=== PATIENT | female | born 1980 | race African-American/Black ===

== ENCOUNTER 2016-10-14 12:39 | Emergency (ER) | payer OTHER ==
[~2016-10-14] VITALS: Ht 167.6 cm; Wt 56.0 kg
[~2016-10-14 12:39] MED LIST: ACET325T47 PO; HYD50 PO; LEVO50TA11 PO; LITH300CRT PO; PHEN100C23 PO; TEMA15CA PO
[2016-10-14] MEDS ORDERED: LORazepam 2 MG/ML VIAL IM ONE (13:15)
[2016-10-14 14:06] VITALS: BP 125/89
== END 2016-10-14 14:07 | disposition home or self-care (01) ==
LOC: EMS 12:41
DX: F41.9 Anxiety disorder, unspecified (principal); F31.9 Bipolar disorder, unspecified; F17.210 Nicotine dependence, cigarettes, uncomplicated; F20.9 Schizophrenia, unspecified; F12.90 Cannabis use, unspecified, uncomplicated; F19.90 Other psychoactive substance use, unspecified, uncomplicated; Z76.0 Encounter for issue of repeat prescription; Z88.6 Allergy status to analgesic agent; Z88.8 Allergy status to other drugs, medicaments and biological substances
CPT/HCPCS: 81025; 96372; 99284; 99406; J2060

== ENCOUNTER 2016-11-20 16:26 | Emergency (ER) | payer OTHER ==
[~2016-11-20] VITALS: Ht 165.1 cm; Wt 55.0 kg
[~2016-11-20 16:26] MED LIST changes: -ACET325T47 PO
[2016-11-20] MEDS ORDERED: LORazepam 2 MG/ML VIAL IM ONE (16:45)
[2016-11-20 17:08] VITALS: BP 126/80
[2016-11-20] MEDS ORDERED: ACETAMINOPHEN 325 MG TABLET PO ONE (17:45)
== END 2016-11-20 17:53 | disposition home or self-care (01) ==
LOC: EMS 16:34
DX: F41.9 Anxiety disorder, unspecified (principal); G89.29 Other chronic pain; M54.5 Low back pain; F17.210 Nicotine dependence, cigarettes, uncomplicated; F12.10 Cannabis abuse, uncomplicated; F31.9 Bipolar disorder, unspecified; E03.9 Hypothyroidism, unspecified; Z88.6 Allergy status to analgesic agent; Z88.8 Allergy status to other drugs, medicaments and biological substances
CPT/HCPCS: 96372; 99284; J2060

== ENCOUNTER 2016-12-08 18:54 | Emergency (ER) | payer OTHER ==
[~2016-12-08] VITALS: Ht 172.7 cm; Wt 56.8 kg
[~2016-12-08 18:54] MED LIST changes: +TEMA15 PO; -TEMA15CA PO
[2016-12-08] MEDS ORDERED: ACETAMINOPHEN 500 MG TABLET PO ONE (20:00)
[2016-12-08] MEDS ORDERED: LORazepam 2 MG/ML VIAL IM ONE (20:00)
[2016-12-08 21:10] VITALS: BP 107/67
== END 2016-12-08 21:19 | disposition home or self-care (01) ==
LOC: EMS 18:54
DX: R51 Headache (principal); F41.1 Generalized anxiety disorder; F20.9 Schizophrenia, unspecified; E03.9 Hypothyroidism, unspecified; F17.210 Nicotine dependence, cigarettes, uncomplicated; F31.9 Bipolar disorder, unspecified; F12.90 Cannabis use, unspecified, uncomplicated; F15.90 Other stimulant use, unspecified, uncomplicated; Z88.6 Allergy status to analgesic agent; Z88.8 Allergy status to other drugs, medicaments and biological substances
CPT/HCPCS: 96372; 99283; J2060

== ENCOUNTER 2017-01-05 09:31 | Emergency (ER) | payer OTHER ==
[~2017-01-05] VITALS: Ht 172.7 cm; Wt 56.8 kg
[~2017-01-05 09:31] MED LIST changes: -TEMA15 PO; +TEMA15CA PO
[2017-01-05] MEDS ORDERED: DiphenhydrAMINE HCL 50 MG/ML VIAL IM ONE (10:30)
[2017-01-05] MEDS ORDERED: LORazepam 2 MG/ML VIAL IM ONE (10:30)
[2017-01-05 13:32] VITALS: BP 126/65
== END 2017-01-05 13:41 | disposition home or self-care (01) ==
LOC: EMS 09:34
DX: F41.9 Anxiety disorder, unspecified (principal); F31.9 Bipolar disorder, unspecified; F20.9 Schizophrenia, unspecified; F12.90 Cannabis use, unspecified, uncomplicated; F19.90 Other psychoactive substance use, unspecified, uncomplicated; E03.9 Hypothyroidism, unspecified; F17.210 Nicotine dependence, cigarettes, uncomplicated; Z88.6 Allergy status to analgesic agent; Z88.8 Allergy status to other drugs, medicaments and biological substances
CPT/HCPCS: 96372; 99284; J1200; J2060

== ENCOUNTER 2017-01-23 11:31 | Emergency (ER) | payer OTHER ==
[~2017-01-23] VITALS: Ht 172.7 cm; Wt 57.3 kg
[2017-01-23 13:32] LABS: BASOPHILS % (AUTO) 0.5 % (0.0-2.0); EOSINOPHILS % (AUTO) 1.2 % (1.0-6.0); HEMOGLOBIN 12.8 g/dL (12.0-16.0); LYMPHOCYTES # (AUTO) 2.3 K/uL (1.0-4.8); LYMPHOCYTES % (AUTO) 37.3 % (22.0-44.0); MEAN CORPUSCULAR HEMOGLOBIN 27.9 pg (26.0-34.0); MEAN CORPUSCULAR HGB CONC 31.9 G/dL (31.0-37.0); MEAN CORPUSCULAR VOLUME 88 fL (80-100); MONOCYTES # (AUTO) 0.4 K/uL (0.1-1.0); MONOCYTES % (AUTO) 6.3 % (2.0-9.0); NEUTROPHILS # (AUTO) 3.4 K/uL (1.8-7.7); NEUTROPHILS % (AUTO) 54.7 % (40.0-70.0); PLATELET COUNT (AUTO) 280 K/uL (150-450); RED BLOOD CELL COUNT(AUTO) 4.57 MIL/uL (4.00-5.20); RED CELL DISTRIBUTION WIDTH 12.2 % (11.5-14.5); WHITE BLOOD COUNT (AUTO) 6.2 K/uL (4.5-11.0)
[2017-01-23] MEDS ORDERED: LORazepam 1 MG TABLET PO ONE (13:45)
[2017-01-23 13:46] LABS: ANION GAP 7 mmol/L (8-16); CALCIUM, TOTAL 8.1 mg/dL (8.8-10.5); CARBON DIOXIDE 27 mmol/L (22-29); CHLORIDE 104 mmol/L (98-107); CREATININE 0.81 mg/dL (0.60-1.30); GLOMERULAR FILTR. RATE CALC > 60 mL/min (>60); POTASSIUM 4.1 mmol/L (3.5-5.1); SODIUM SERUM 138 mmol/L (136-145); UREA NITROGEN, BLOOD 7 mg/dL (7-18)
[2017-01-23 13:52] LABS: ALANINE AMINOTRANSFERASE 25 U/L (12-78); ALBUMIN 3.8 g/dL (3.4-5.0); ASPARTATE AMINOTRANSFERASE 19 U/L (15-37); BILIRUBIN,TOTAL 0.2 mg/dL (0.1-1.0); TOTAL PROTEIN, SERUM 6.9 g/dL (6.4-8.2)
[2017-01-23 14:00] VITALS: BP 135/78
[2017-01-23] MEDS ORDERED: ACETAMINOPHEN 325 MG TABLET PO ONE (14:30)
== END 2017-01-23 14:56 | disposition home or self-care (01) ==
LOC: EEVIPCON 11:33 → EMS 11:33
DX: F41.9 Anxiety disorder, unspecified (principal); F20.9 Schizophrenia, unspecified; E03.9 Hypothyroidism, unspecified; F31.9 Bipolar disorder, unspecified; F17.210 Nicotine dependence, cigarettes, uncomplicated; F12.90 Cannabis use, unspecified, uncomplicated; F19.90 Other psychoactive substance use, unspecified, uncomplicated; Z88.6 Allergy status to analgesic agent; Z88.8 Allergy status to other drugs, medicaments and biological substances
CPT/HCPCS: 36415; 80053; 80307; 85025; 99284; G0480

== ENCOUNTER 2017-01-30 12:58 | Emergency (ER) | payer OTHER ==
[~2017-01-30] VITALS: Ht 172.7 cm; Wt 61.4 kg
[2017-01-30] MEDS ORDERED: ACETAMINOPHEN 325 MG TABLET PO ONE (14:30)
[2017-01-30] MEDS ORDERED: LORazepam 1 MG TABLET PO ONE (14:30)
[2017-01-30 15:20] VITALS: BP 122/75
== END 2017-01-30 15:20 | disposition home or self-care (01) ==
LOC: EMS 13:00
DX: F41.9 Anxiety disorder, unspecified (principal); D64.9 Anemia, unspecified; F31.9 Bipolar disorder, unspecified; F20.9 Schizophrenia, unspecified; F17.210 Nicotine dependence, cigarettes, uncomplicated; E03.9 Hypothyroidism, unspecified; Z59.0 Homelessness; Z88.6 Allergy status to analgesic agent; Z88.8 Allergy status to other drugs, medicaments and biological substances; Z79.899 Other long term (current) drug therapy
CPT/HCPCS: 99284

== ENCOUNTER 2017-02-01 22:59 | Inpatient (IN) | payer MEDICAID, OTHER ==
[~2017-02-01] VITALS: Ht 172.7 cm; Wt 57.2 kg
[2017-02-02] MEDS ORDERED: LITH300T PO ×2 (01:34)
[2017-02-02] MEDS ORDERED: HYDR-3965 PO (01:34)
[2017-02-02] MEDS ORDERED: HYDR-4031 PO (01:34)
[2017-02-02] MEDS ORDERED: RISP3 PO (01:34)
[2017-02-02] MEDS ORDERED: OLAN10TA3 PO (01:34)
[2017-02-02 03:25] VITALS: BP 103/67
[2017-02-02] MEDS ORDERED: -PHARMACY VACCINE NOTE- MISC ONE ×2 (03:45)
[2017-02-02 08:37] VITALS: BP 121/71
[2017-02-02] MEDS: LORazepam 2 MG TABLET PO PRN ×2 (09:56→16:58)
[2017-02-02] MEDS ORDERED: OLAN7.5T2 PO (11:01)
[2017-02-02 16:31] VITALS: BP 99/65
[2017-02-02] MEDS: LITHIUM CARBONATE 300 MG CAPSULE PO SCH (20:17)
[2017-02-02] MEDS ORDERED: PHENYTOIN SODIUM 100 MG ER CAPSULE PO SCH (21:00)
[2017-02-02] MEDS: ZOLPIDEM TARTRATE 10 MG TABLET PO PRN (21:05)
[2017-02-03 03:24] VITALS: BP 119/64
[2017-02-03] MEDS: LORazepam 2 MG TABLET PO PRN ×4 (03:28→20:19)
[2017-02-03] MEDS: ACETAMINOPHEN 325 MG TABLET PO PRN ×2 (05:13→14:53)
[2017-02-03] MEDS: LEVOTHYROXINE SODIUM 50 MCG TABLET PO SCH (06:12)
[2017-02-03 08:04] LABS: BASOPHILS % (AUTO) 0.5 % (0.0-2.0); EOSINOPHILS % (AUTO) 2.1 % (1.0-6.0); HEMATOCRIT 38.8 % (36-46); HEMOGLOBIN 13.1 g/dL (12.0-16.0); LYMPHOCYTES # (AUTO) 1.8 K/uL (1.0-4.8); LYMPHOCYTES % (AUTO) 32.5 % (22.0-44.0); MEAN CORPUSCULAR HGB CONC 33.8 G/dL (31.0-37.0); MEAN CORPUSCULAR VOLUME 86 fL (80-100); MONOCYTES # (AUTO) 0.4 K/uL (0.1-1.0); MONOCYTES % (AUTO) 6.9 % (2.0-9.0); NEUTROPHILS # (AUTO) 3.2 K/uL (1.8-7.7); PLATELET COUNT (AUTO) 261 K/uL (150-450); RED BLOOD CELL COUNT(AUTO) 4.53 MIL/uL (4.00-5.20); RED CELL DISTRIBUTION WIDTH 12.5 % (11.5-14.5); WHITE BLOOD COUNT (AUTO) 5.5 K/uL (4.5-11.0)
[2017-02-03 08:12] VITALS: BP 105/64
[2017-02-03 08:17] LABS: HEMOGLOBIN A1C 4.9 % (4.5-6.2)
[2017-02-03 08:24] LABS: ALANINE AMINOTRANSFERASE 24 U/L (12-78); ALBUMIN 3.7 g/dL (3.4-5.0); ANION GAP 9 mmol/L (8-16); ASPARTATE AMINOTRANSFERASE 16 U/L (15-37); BILIRUBIN,TOTAL 0.1 mg/dL (0.1-1.0); CALCIUM, TOTAL 8.6 mg/dL (8.8-10.5); CARBON DIOXIDE 24 mmol/L (22-29); CHLORIDE 103 mmol/L (98-107); CHOL/HDL RATIO 3.1 (3.9-5.7); CREATININE 0.84 mg/dL (0.60-1.30); GLOMERULAR FILTR. RATE CALC > 60 mL/min (>60); POTASSIUM 4.2 mmol/L (3.5-5.1); SODIUM SERUM 136 mmol/L (136-145); THYROID STIMULATING HORMONE 1.01 uIU/mL (0.36-3.74); TOTAL PROTEIN, SERUM 6.5 g/dL (6.4-8.2); UREA NITROGEN, BLOOD 7 mg/dL (7-18)
[2017-02-03] MEDS: RisperiDONE 3 MG TABLET PO SCH ×2 (09:36→17:00)
[2017-02-03] MEDS: LITHIUM CARBONATE 600 MG CAPSULE PO SCH (09:36)
[2017-02-03] MEDS: BENZTROPINE MESYLATE 0.5 MG TABLET PO SCH ×2 (09:37→17:00)
[2017-02-03 15:53] VITALS: BP 110/62
[2017-02-03 17:26] VITALS: BP 100/60
[2017-02-03] MEDS: PHENYTOIN SODIUM 100 MG ER CAPSULE PO SCH (20:19)
[2017-02-03] MEDS: LITHIUM CARBONATE 300 MG CAPSULE PO SCH (20:19)
[2017-02-03] MEDS: ZOLPIDEM TARTRATE 10 MG TABLET PO PRN (21:07)
[2017-02-04 01:40] VITALS: BP 117/63
[2017-02-04] MEDS: LORazepam 2 MG TABLET PO PRN ×3 (04:19→16:21)
[2017-02-04] MEDS: ACETAMINOPHEN 325 MG TABLET PO PRN (04:19)
[2017-02-04] MEDS: LEVOTHYROXINE SODIUM 50 MCG TABLET PO SCH (06:21)
[2017-02-04] MEDS: RisperiDONE 3 MG TABLET PO SCH ×2 (09:00→17:00)
[2017-02-04] MEDS: BENZTROPINE MESYLATE 0.5 MG TABLET PO SCH ×2 (09:00→17:00)
[2017-02-04 09:01] VITALS: BP 105/66
[2017-02-04] MEDS: LITHIUM CARBONATE 600 MG CAPSULE PO SCH (09:12)
[2017-02-04 16:28] VITALS: BP 110/68
[2017-02-04] MEDS: PHENYTOIN SODIUM 100 MG ER CAPSULE PO SCH (20:03)
[2017-02-04] MEDS: LITHIUM CARBONATE 300 MG CAPSULE PO SCH (20:03)
[2017-02-04] MEDS: ZOLPIDEM TARTRATE 10 MG TABLET PO PRN (21:01)
[2017-02-05] MEDS: LORazepam 2 MG TABLET PO PRN ×3 (03:53→16:12)
[2017-02-05 06:17] VITALS: BP 110/77
[2017-02-05] MEDS: LEVOTHYROXINE SODIUM 50 MCG TABLET PO SCH (06:43)
[2017-02-05 08:37] VITALS: BP 98/65
[2017-02-05 09:00] VITALS: BP 108/71
[2017-02-05] MEDS: BENZTROPINE MESYLATE 0.5 MG TABLET PO SCH ×2 (09:00→16:12)
[2017-02-05] MEDS: RisperiDONE 3 MG TABLET PO SCH ×2 (09:00→16:12)
[2017-02-05] MEDS: LITHIUM CARBONATE 600 MG CAPSULE PO SCH (09:37)
[2017-02-05] MEDS: NICOTINE 21 MG/24 HOUR PATCH TD SCH (10:55)
[2017-02-05 16:39] VITALS: BP 113/61
[2017-02-05] MEDS: LITHIUM CARBONATE 300 MG CAPSULE PO SCH (20:48)
[2017-02-05] MEDS: PHENYTOIN SODIUM 100 MG ER CAPSULE PO SCH (20:48)
[2017-02-05] MEDS: ZOLPIDEM TARTRATE 10 MG TABLET PO PRN (20:48)
[2017-02-06 06:29] VITALS: BP 132/63
[2017-02-06] MEDS: LORazepam 2 MG TABLET PO PRN ×2 (06:39→16:44)
[2017-02-06] MEDS: LEVOTHYROXINE SODIUM 50 MCG TABLET PO SCH (06:40)
[2017-02-06] MEDS: RisperiDONE 3 MG TABLET PO SCH ×2 (09:00→16:43)
[2017-02-06] MEDS: BENZTROPINE MESYLATE 0.5 MG TABLET PO SCH ×2 (09:00→16:43)
[2017-02-06] MEDS: LITHIUM CARBONATE 600 MG CAPSULE PO SCH (10:03)
[2017-02-06] MEDS: NICOTINE 21 MG/24 HOUR PATCH TD SCH (10:03)
[2017-02-06 17:15] VITALS: BP 109/62
[2017-02-06] MEDS: PHENYTOIN SODIUM 100 MG ER CAPSULE PO SCH (21:05)
[2017-02-06] MEDS: LITHIUM CARBONATE 300 MG CAPSULE PO SCH (21:06)
[2017-02-07] MEDS: LEVOTHYROXINE SODIUM 50 MCG TABLET PO SCH (06:34)
[2017-02-07] MEDS: LORazepam 2 MG TABLET PO PRN ×3 (08:26→16:50)
[2017-02-07 08:57] VITALS: BP 101/59
[2017-02-07] MEDS: BENZTROPINE MESYLATE 0.5 MG TABLET PO SCH ×2 (09:06→16:50)
[2017-02-07] MEDS: LITHIUM CARBONATE 600 MG CAPSULE PO SCH (09:06)
[2017-02-07] MEDS: NICOTINE 21 MG/24 HOUR PATCH TD SCH (09:06)
[2017-02-07] MEDS: RisperiDONE 3 MG TABLET PO SCH ×2 (09:07→16:50)
[2017-02-07 16:20] VITALS: BP 111/60
[2017-02-07] MEDS: ACETAMINOPHEN 325 MG TABLET PO PRN (16:50)
[2017-02-07] MEDS: PHENYTOIN SODIUM 100 MG ER CAPSULE PO SCH (21:06)
[2017-02-07] MEDS: LITHIUM CARBONATE 300 MG CAPSULE PO SCH (21:07)
[2017-02-07] MEDS: ZOLPIDEM TARTRATE 10 MG TABLET PO PRN (21:07)
[2017-02-08] MEDS: LEVOTHYROXINE SODIUM 50 MCG TABLET PO SCH (06:43)
[2017-02-08 08:07] VITALS: BP 106/74
[2017-02-08] MEDS: BENZTROPINE MESYLATE 0.5 MG TABLET PO SCH ×2 (08:59→16:42)
[2017-02-08] MEDS: RisperiDONE 3 MG TABLET PO SCH ×2 (08:59→17:00)
[2017-02-08] MEDS: NICOTINE 21 MG/24 HOUR PATCH TD SCH (08:59)
[2017-02-08] MEDS: LITHIUM CARBONATE 600 MG CAPSULE PO SCH (08:59)
[2017-02-08] MEDS: ACETAMINOPHEN 325 MG TABLET PO PRN (09:00)
[2017-02-08] MEDS: LORazepam 2 MG TABLET PO PRN ×2 (09:00→16:42)
[2017-02-08 17:28] VITALS: BP 109/65
[2017-02-08] MEDS: LITHIUM CARBONATE 300 MG CAPSULE PO SCH (20:15)
[2017-02-08] MEDS: PHENYTOIN SODIUM 100 MG ER CAPSULE PO SCH (20:15)
[2017-02-08] MEDS: ZOLPIDEM TARTRATE 10 MG TABLET PO PRN (21:02)
[2017-02-09 03:18] VITALS: BP 121/68
[2017-02-09] MEDS: LORazepam 2 MG TABLET PO PRN ×3 (03:20→16:01)
[2017-02-09] MEDS: LEVOTHYROXINE SODIUM 50 MCG TABLET PO SCH (06:29)
[2017-02-09 08:29] VITALS: BP 100/63
[2017-02-09] MEDS: BENZTROPINE MESYLATE 0.5 MG TABLET PO SCH ×2 (09:00→17:00)
[2017-02-09] MEDS: RisperiDONE 3 MG TABLET PO SCH ×2 (09:00→17:00)
[2017-02-09] MEDS: NICOTINE 21 MG/24 HOUR PATCH TD SCH (09:02)
[2017-02-09] MEDS: LITHIUM CARBONATE 600 MG CAPSULE PO SCH (09:02)
[2017-02-09 16:05] VITALS: BP 112/69
[2017-02-09] MEDS: LITHIUM CARBONATE 300 MG CAPSULE PO SCH (20:17)
[2017-02-09] MEDS: PHENYTOIN SODIUM 100 MG ER CAPSULE PO SCH (20:17)
[2017-02-09] MEDS: ZOLPIDEM TARTRATE 10 MG TABLET PO PRN (21:01)
[2017-02-10] MEDS: LORazepam 2 MG TABLET PO PRN ×3 (05:52→17:04)
[2017-02-10] MEDS: LEVOTHYROXINE SODIUM 50 MCG TABLET PO SCH (05:52)
[2017-02-10 05:54] VITALS: BP 101/71
[2017-02-10 08:18] VITALS: BP 98/55
[2017-02-10] MEDS: BENZTROPINE MESYLATE 0.5 MG TABLET PO SCH ×2 (09:00→17:06)
[2017-02-10] MEDS: RisperiDONE 3 MG TABLET PO SCH ×2 (09:00→17:06)
[2017-02-10] MEDS: LITHIUM CARBONATE 600 MG CAPSULE PO SCH (09:15)
[2017-02-10] MEDS: NICOTINE 21 MG/24 HOUR PATCH TD SCH (09:16)
[2017-02-10 16:15] VITALS: BP 111/74
[2017-02-10] MEDS: PHENYTOIN SODIUM 100 MG ER CAPSULE PO SCH (20:15)
[2017-02-10] MEDS: LITHIUM CARBONATE 300 MG CAPSULE PO SCH (20:15)
[2017-02-10] MEDS: ZOLPIDEM TARTRATE 10 MG TABLET PO PRN (20:52)
[2017-02-11 01:15] VITALS: BP 100/61
[2017-02-11] MEDS: LEVOTHYROXINE SODIUM 50 MCG TABLET PO SCH (05:51)
[2017-02-11 08:13] VITALS: BP 111/62
[2017-02-11] MEDS: LORazepam 2 MG TABLET PO PRN ×3 (08:46→21:52)
[2017-02-11] MEDS: NICOTINE 21 MG/24 HOUR PATCH TD SCH (08:46)
[2017-02-11] MEDS: BENZTROPINE MESYLATE 0.5 MG TABLET PO SCH ×2 (08:46→17:05)
[2017-02-11] MEDS: LITHIUM CARBONATE 600 MG CAPSULE PO SCH (08:46)
[2017-02-11] MEDS: RisperiDONE 3 MG TABLET PO SCH ×2 (09:36→17:05)
[2017-02-11] MEDS ORDERED: MAG HYDROX/AL HYDROX/SIMETH 30 ML SUSP UDCUP PO PRN (15:30)
[2017-02-11 16:11] VITALS: BP 121/68
[2017-02-11] MEDS: ACETAMINOPHEN 325 MG TABLET PO PRN (17:06)
[2017-02-11 17:07] VITALS: BP 121/68
[2017-02-11] MEDS: LITHIUM CARBONATE 300 MG CAPSULE PO SCH (20:40)
[2017-02-11] MEDS: PHENYTOIN SODIUM 100 MG ER CAPSULE PO SCH (20:40)
[2017-02-11] MEDS: ZOLPIDEM TARTRATE 10 MG TABLET PO PRN (21:10)
[2017-02-12 01:56] VITALS: BP 106/60
[2017-02-12] MEDS: ACETAMINOPHEN 325 MG TABLET PO PRN ×2 (02:00→17:12)
[2017-02-12 06:05] VITALS: BP 112/71
[2017-02-12] MEDS: LORazepam 2 MG TABLET PO PRN ×4 (06:07→20:16)
[2017-02-12] MEDS: LEVOTHYROXINE SODIUM 50 MCG TABLET PO SCH (06:24)
[2017-02-12] MEDS: LITHIUM CARBONATE 600 MG CAPSULE PO SCH (08:30)
[2017-02-12] MEDS: BENZTROPINE MESYLATE 0.5 MG TABLET PO SCH ×2 (08:30→16:48)
[2017-02-12] MEDS: RisperiDONE 3 MG TABLET PO SCH ×2 (08:30→16:48)
[2017-02-12] MEDS: NICOTINE 21 MG/24 HOUR PATCH TD SCH (08:31)
[2017-02-12 08:46] VITALS: BP 142/65
[2017-02-12 16:08] VITALS: BP 120/67
[2017-02-12] MEDS: PHENYTOIN SODIUM 100 MG ER CAPSULE PO SCH (20:17)
[2017-02-12] MEDS: LITHIUM CARBONATE 300 MG CAPSULE PO SCH (20:17)
[2017-02-12] MEDS: ZOLPIDEM TARTRATE 10 MG TABLET PO PRN (21:37)
[2017-02-13 04:08] VITALS: BP 118/77
[2017-02-13] MEDS: ACETAMINOPHEN 325 MG TABLET PO PRN (06:10)
[2017-02-13] MEDS: LORazepam 2 MG TABLET PO PRN ×2 (06:10→10:34)
[2017-02-13] MEDS: LEVOTHYROXINE SODIUM 50 MCG TABLET PO SCH (06:15)
[2017-02-13 08:16] VITALS: BP 106/71
[2017-02-13] MEDS: BENZTROPINE MESYLATE 0.5 MG TABLET PO SCH (08:50)
[2017-02-13] MEDS: NICOTINE 21 MG/24 HOUR PATCH TD SCH (08:50)
[2017-02-13] MEDS: RisperiDONE 3 MG TABLET PO SCH (08:50)
[2017-02-13] MEDS: LITHIUM CARBONATE 600 MG CAPSULE PO SCH (09:05)
[2017-02-13 10:35] VITALS: BP 113/67
[2017-02-13] MEDS ORDERED: BENZ0.5T6 PO (13:08)
== END 2017-02-13 15:16 | disposition home or self-care (01) | DRG 750 ==
LOC: EDSTATUS 23:00 → B3A 02-02 01:20
PROVIDERS: ADMIT Psychiatry & Neurology Psychiatry; ATTEND Psychiatry & Neurology Psychiatry
DX: F25.1 Schizoaffective disorder, depressive type (principal); D57.1 Sickle-cell disease without crisis; R45.851 Suicidal ideations; E03.9 Hypothyroidism, unspecified; J44.9 Chronic obstructive pulmonary disease, unspecified; K21.9 Gastro-esophageal reflux disease without esophagitis; M19.90 Unspecified osteoarthritis, unspecified site; G40.909 Epilepsy, unspecified, not intractable, without status epilepticus; Z91.5 Personal history of self-harm; F22 Delusional disorders; Z88.6 Allergy status to analgesic agent; Z88.1 Allergy status to other antibiotic agents; Z88.8 Allergy status to other drugs, medicaments and biological substances; F19.10 Other psychoactive substance abuse, uncomplicated; Z71.51 Drug abuse counseling and surveillance of drug abuser
CPT/HCPCS: 83036; 84439; 84443; 87081

== ENCOUNTER 2017-07-07 11:57 | Emergency (ER) | payer OTHER ==
[~2017-07-07] VITALS: Ht 172.7 cm; Wt 53.2 kg
[~2017-07-07 11:57] MED LIST changes: +BENZ0.5T6 PO; -HYD50 PO; -LITH300CRT PO; +LITH300T PO; +RISP3 PO; -TEMA15CA PO
[2017-07-07] MEDS ORDERED: ACETAMINOPHEN 325 MG TABLET PO ONE (13:00)
[2017-07-07] MEDS ORDERED: LORazepam 1 MG TABLET PO ONE (13:00)
[2017-07-07 13:13] VITALS: BP 102/68
== END 2017-07-07 13:20 | disposition home or self-care (01) ==
LOC: EMS 11:58
DX: F41.9 Anxiety disorder, unspecified (principal); M25.511 Pain in right shoulder; G89.29 Other chronic pain; F31.9 Bipolar disorder, unspecified; F20.9 Schizophrenia, unspecified; E03.9 Hypothyroidism, unspecified; F12.90 Cannabis use, unspecified, uncomplicated; F15.90 Other stimulant use, unspecified, uncomplicated; F17.210 Nicotine dependence, cigarettes, uncomplicated; Z88.6 Allergy status to analgesic agent; Z88.8 Allergy status to other drugs, medicaments and biological substances
CPT/HCPCS: 99284; 99406

== ENCOUNTER 2017-07-12 07:47 | Emergency (ER) | payer OTHER ==
[~2017-07-12] VITALS: Ht 175.3 cm; Wt 53.0 kg
[2017-07-12 07:59] VITALS: BP 108/74
[2017-07-12] MEDS ORDERED: ACETAMINOPHEN 500 MG TABLET PO ONE (08:00)
[2017-07-12] MEDS ORDERED: LORazepam 1 MG TABLET PO ONE (08:00)
== END 2017-07-12 08:11 | disposition home or self-care (01) ==
LOC: EMS 07:48
DX: M25.511 Pain in right shoulder (principal); F41.9 Anxiety disorder, unspecified; G89.29 Other chronic pain; F31.9 Bipolar disorder, unspecified; E03.9 Hypothyroidism, unspecified; F20.9 Schizophrenia, unspecified; F12.90 Cannabis use, unspecified, uncomplicated; F19.90 Other psychoactive substance use, unspecified, uncomplicated; Z76.0 Encounter for issue of repeat prescription; Z59.0 Homelessness; Z87.891 Personal history of nicotine dependence; Z88.6 Allergy status to analgesic agent; Z88.8 Allergy status to other drugs, medicaments and biological substances
CPT/HCPCS: 99283

== ENCOUNTER 2017-07-14 15:50 | Emergency (ER) | payer OTHER ==
[~2017-07-14] VITALS: Ht 167.6 cm; Wt 52.3 kg
[2017-07-14 16:03] VITALS: BP 111/71
[2017-07-14 16:30] LABS: BASOPHILS % (AUTO) 0.5 % (0.0-2.0); EOSINOPHILS % (AUTO) 1.7 % (1.0-6.0); HEMATOCRIT 39.7 % (36-46); HEMOGLOBIN 13.3 g/dL (12.0-16.0); LYMPHOCYTES # (AUTO) 1.7 K/uL (1.0-4.8); LYMPHOCYTES % (AUTO) 23.2 % (22.0-44.0); MEAN CORPUSCULAR HEMOGLOBIN 28.5 pg (26.0-34.0); MEAN CORPUSCULAR HGB CONC 33.5 G/dL (31.0-37.0); MEAN CORPUSCULAR VOLUME 85 fL (80-100); MONOCYTES # (AUTO) 0.4 K/uL (0.1-1.0); MONOCYTES % (AUTO) 5.8 % (2.0-9.0); NEUTROPHILS # (AUTO) 4.9 K/uL (1.8-7.7); NEUTROPHILS % (AUTO) 68.8 % (40.0-70.0); PLATELET COUNT (AUTO) 330 K/uL (150-450); RED BLOOD CELL COUNT(AUTO) 4.67 MIL/uL (4.00-5.20); WHITE BLOOD COUNT (AUTO) 7.2 K/uL (4.5-11.0)
[2017-07-14 16:42] LABS: INR 1.1 (0.9-1.1); PROTHROMBIN TIME 11.3 SEC (9.4-11.6)
[2017-07-14 16:56] LABS: ANION GAP 9 mmol/L (8-16); CALCIUM, TOTAL 9.1 mg/dL (8.8-10.5); CARBON DIOXIDE 25 mmol/L (22-29); CHLORIDE 102 mmol/L (98-107); CREATININE 0.82 mg/dL (0.60-1.30); GLOMERULAR FILTR. RATE CALC > 60 mL/min (>60); POTASSIUM 4.6 mmol/L (3.5-5.1); SODIUM SERUM 136 mmol/L (136-145); UREA NITROGEN, BLOOD 8 mg/dL (7-18)
[2017-07-14 17:02] LABS: APPEARANCE,URINE CLEAR (CLEAR); GLUCOSE, URINE (UA) NEGATIVE (NEGATIVE); KETONES,URINE NEGATIVE (NEGATIVE); LEUKOCYTE ESTERASE ,URINE NEGATIVE (NEGATIVE); OCCULT BLOOD,URINE NEGATIVE (NEGATIVE); PROTEIN,URINE NEGATIVE (NEGATIVE)
[2017-07-14 17:04] LABS: ALANINE AMINOTRANSFERASE 21 U/L (12-78); ASPARTATE AMINOTRANSFERASE 32 U/L (15-37); B-TYPE NATRIURETIC PEPTIDE < 5 pg/mL (0-100); BILIRUBIN,TOTAL 0.3 mg/dL (0.1-1.0); CREATINE KINASE MB 1.4 ng/mL (0-5); CREATINE KINASE, TOTAL 238 U/L (26-192); TOTAL PROTEIN, SERUM 7.7 g/dL (6.4-8.2)
[2017-07-14 17:04] LABS: ADD UA MICROSCOPIC NO
[2017-07-14 17:20] LABS: RBC MORPHOLOGY COMMENT NORMAL RBC MORPH
== END 2017-07-14 17:42 | disposition home or self-care (01) ==
LOC: EMS 15:53
DX: R07.89 Other chest pain (principal); D57.00 Hb-SS disease with crisis, unspecified; E03.9 Hypothyroidism, unspecified; F12.90 Cannabis use, unspecified, uncomplicated; F19.90 Other psychoactive substance use, unspecified, uncomplicated; Z87.891 Personal history of nicotine dependence; Z59.0 Homelessness; Z88.6 Allergy status to analgesic agent; Z88.8 Allergy status to other drugs, medicaments and biological substances
CPT/HCPCS: 85045; 93005; 99285

== ENCOUNTER 2017-07-23 09:51 | Emergency (ER) | payer OTHER ==
[~2017-07-23] VITALS: Ht 172.7 cm; Wt 56.8 kg
[2017-07-23 11:10] LABS: BASOPHILS # (AUTO) 0.03 K/uL (0.00-0.20); BASOPHILS % (AUTO) 0.4 % (0.0-2.0); EOSINOPHILS % (AUTO) 1.37 % (1.0-6.0); HEMATOCRIT 39.3 % (36-46); HEMOGLOBIN 12.7 g/dL (12.0-16.0); LYMPHOCYTES # (AUTO) 1.4 K/uL (1.0-4.8); LYMPHOCYTES % (AUTO) 19.7 % (22.0-44.0); MEAN CORPUSCULAR HEMOGLOBIN 27.8 pg (26.0-34.0); MEAN CORPUSCULAR HGB CONC 32.2 G/dL (31.0-37.0); MEAN CORPUSCULAR VOLUME 86 fL (80-100); MONOCYTES # (AUTO) 0.5 K/uL (0.1-1.0); MONOCYTES % (AUTO) 6.9 % (2.0-9.0); NEUTROPHILS # (AUTO) 5.3 K/uL (1.8-7.7); NEUTROPHILS % (AUTO) 71.6 % (40.0-70.0); PLATELET COUNT (AUTO) 260 K/uL (150-450); RED BLOOD CELL COUNT(AUTO) 4.55 MIL/uL (4.00-5.20); RED CELL DISTRIBUTION WIDTH 13.4 % (11.5-14.5); WHITE BLOOD COUNT (AUTO) 7.3 K/uL (4.5-11.0)
[2017-07-23 11:12] LABS: RBC MORPHOLOGY COMMENT NORMAL RBC MORPH
[2017-07-23 11:20] LABS: ANION GAP 5 mmol/L (8-16); CALCIUM, TOTAL 8.8 mg/dL (8.8-10.5); CARBON DIOXIDE 27 mmol/L (22-29); CHLORIDE 104 mmol/L (98-107); CREATININE 0.71 mg/dL (0.60-1.30); GLOMERULAR FILTR. RATE CALC > 60 mL/min (>60); POTASSIUM 4.3 mmol/L (3.5-5.1); SODIUM SERUM 136 mmol/L (136-145); UREA NITROGEN, BLOOD 10 mg/dL (7-18)
[2017-07-23] MEDS ORDERED: LITH300C3 PO (11:22)
[2017-07-23] MEDS ORDERED: LITH600 PO (11:22)
[2017-07-23] MEDS ORDERED: LORazepam 1 MG TABLET PO ONE (11:30)
[2017-07-23 11:35] LABS: ALANINE AMINOTRANSFERASE 28 U/L (12-78); ALBUMIN 3.6 g/dL (3.4-5.0); ASPARTATE AMINOTRANSFERASE 24 U/L (15-37); BILIRUBIN,TOTAL 0.1 mg/dL (0.1-1.0); THYROID STIMULATING HORMONE 0.33 uIU/mL (0.36-3.74)
[2017-07-23 11:37] LABS: LITHIUM < 0.20 mmol/L (0.60-1.20)
[2017-07-23 12:05] VITALS: BP 115/68
== END 2017-07-23 12:09 | disposition home or self-care (01) ==
LOC: EMS 09:53
DX: F41.9 Anxiety disorder, unspecified (principal); E03.9 Hypothyroidism, unspecified; F12.90 Cannabis use, unspecified, uncomplicated; F19.90 Other psychoactive substance use, unspecified, uncomplicated; Z87.891 Personal history of nicotine dependence; Z59.0 Homelessness; Z88.6 Allergy status to analgesic agent; Z88.8 Allergy status to other drugs, medicaments and biological substances
CPT/HCPCS: 36415; 80053; 80178; 80185; 80307; 84443; 85025; 99284; G0480

== ENCOUNTER 2017-11-05 22:58 | Emergency (ER) | payer OTHER ==
[~2017-11-05] VITALS: Ht 172.7 cm; Wt 52.3 kg
[~2017-11-05 22:58] MED LIST changes: +LITH300C3 PO; -LITH300T PO; +LITH600 PO
[2017-11-06] MEDS ORDERED: ACETAMINOPHEN 500 MG TABLET PO ONE (05:15)
[2017-11-06] MEDS ORDERED: TraMADol HCL 50 MG TABLET PO ONE (05:15)
[2017-11-06 06:07] VITALS: BP 118/71
[2017-11-06 06:07] LABS: GLUCOSE,POINT OF CARE 79 MG/DL (70-110)
== END 2017-11-06 06:13 | disposition home or self-care (01) ==
LOC: EDUNIT# 22:58 → EMS 22:59
DX: M54.5 Low back pain (principal); G89.29 Other chronic pain; F25.9 Schizoaffective disorder, unspecified; E16.2 Hypoglycemia, unspecified; E03.9 Hypothyroidism, unspecified; F12.90 Cannabis use, unspecified, uncomplicated; F15.90 Other stimulant use, unspecified, uncomplicated; Z87.891 Personal history of nicotine dependence
CPT/HCPCS: 82962; 99283

== ENCOUNTER 2018-07-27 04:47 | Emergency (ER) | payer OTHER ==
[~2018-07-27] VITALS: Ht 172.7 cm; Wt 51.8 kg
[~2018-07-27 04:47] MED LIST changes: +BENZ0.5T44 PO; -BENZ0.5T6 PO
[2018-07-27 05:15] LABS: AMPHET/METH SCREEN,URINE POSITIVE (NEGATIVE); BARBITURATE SCREEN, URINE NEGATIVE (NEGATIVE); BENZODIAZEPINES SCREEN,URINE NEGATIVE (NEGATIVE); CANNABINOID SCREEN,URINE NEGATIVE (NEGATIVE); COCAINE SCREEN,URINE NEGATIVE (NEGATIVE); METHADONE SCREEN, URINE NEGATIVE (NEGATIVE); OPIATE SCREEN,URINE NEGATIVE (NEGATIVE)
[2018-07-27 05:17] LABS: PHENCYCLIDINE SCREEN,URINE NEGATIVE (NEGATIVE)
[2018-07-27 05:48] LABS: BASOPHILS % (AUTO) 1.5 % (0.0-2.0); EOSINOPHILS % (AUTO) 1.2 % (1.0-6.0); HEMATOCRIT 33.2 % (36-46); HEMOGLOBIN 10.1 g/dL (12.0-16.0); LYMPHOCYTES # (AUTO) 1.4 K/uL (1.0-4.8); LYMPHOCYTES % (AUTO) 16.2 % (22.0-44.0); MEAN CORPUSCULAR HEMOGLOBIN 21.2 pg (26.0-34.0); MEAN CORPUSCULAR HGB CONC 30.5 G/dL (31.0-37.0); MEAN CORPUSCULAR VOLUME 69 fL (80-100); MONOCYTES # (AUTO) 0.6 K/uL (0.1-1.0); MONOCYTES % (AUTO) 7.4 % (2.0-9.0); NEUTROPHILS # (AUTO) 6.4 K/uL (1.8-7.7); NEUTROPHILS % (AUTO) 73.7 % (40.0-70.0); PLATELET COUNT (AUTO) 285 K/uL (150-450); RED BLOOD CELL COUNT(AUTO) 4.78 MIL/uL (4.00-5.20); RED CELL DISTRIBUTION WIDTH 19.6 % (11.5-14.5)
[2018-07-27 05:59] LABS: ANION GAP 4 mmol/L (8-16); CALCIUM, TOTAL 9.1 mg/dL (8.8-10.5); CARBON DIOXIDE 32 mmol/L (22-29); CHLORIDE 102 mmol/L (98-107); CREATININE 0.76 mg/dL (0.60-1.30); GLOMERULAR FILTR. RATE CALC > 60 mL/min (>60); GLUCOSE,RANDOM 88 mg/dL (70-110); POTASSIUM 3.9 mmol/L (3.5-5.1); SODIUM SERUM 138 mmol/L (136-145); UREA NITROGEN, BLOOD 4 mg/dL (7-18)
[2018-07-27 06:13] LABS: ALANINE AMINOTRANSFERASE 49 U/L (12-78); ALBUMIN 3.5 g/dL (3.4-5.0); ALKALINE PHOSPHATASE 159 U/L (46-116); ASPARTATE AMINOTRANSFERASE 56 U/L (15-37); BILIRUBIN,TOTAL 0.2 mg/dL (0.1-1.0); HCG,QUANTITATIVE < 1 mIU/mL (0-6); PHENYTOIN (DILANTIN) 10.3 mcg/mL (10.0-20.0); THYROID STIMULATING HORMONE 1.33 uIU/mL (0.36-3.74); TOTAL PROTEIN, SERUM 7.7 g/dL (6.4-8.2)
[2018-07-27 06:24] LABS: PLATELET MORPHOLOGY COMMENT LARGE PLTS PRESENT
[2018-07-27] MEDS ORDERED: ACETAMINOPHEN 500 MG TABLET PO ONE (07:00)
[2018-07-27] MEDS ORDERED: LORazepam 2 MG/ML VIAL IM ONE (07:00)
[2018-07-27 07:55] VITALS: BP 130/79
[2018-07-27 08:14] LABS: LITHIUM < 0.20 mmol/L (0.60-1.20)
== END 2018-07-27 08:29 | disposition home or self-care (01) ==
LOC: EMS 04:52
DX: F41.9 Anxiety disorder, unspecified (principal); D64.9 Anemia, unspecified; R52 Pain, unspecified; F15.10 Other stimulant abuse, uncomplicated; Z85.3 Personal history of malignant neoplasm of breast; F12.90 Cannabis use, unspecified, uncomplicated; F31.9 Bipolar disorder, unspecified; F20.9 Schizophrenia, unspecified; Z87.891 Personal history of nicotine dependence; Z59.0 Homelessness; Z88.6 Allergy status to analgesic agent; Z88.8 Allergy status to other drugs, medicaments and biological substances; Z79.899 Other long term (current) drug therapy
CPT/HCPCS: 36415; 80053; 80178; 80185; 80307; 84443; 84702; 85025; 96372; 99284; G0480; J2060

== ENCOUNTER 2018-08-27 19:16 | Emergency (ER) | payer OTHER ==
[~2018-08-27] VITALS: Ht 175.3 cm; Wt 55.5 kg
[2018-08-27 20:22] VITALS: BP 148/70
== END 2018-08-27 21:00 | disposition left against medical advice (07) ==
LOC: EMS 19:17
DX: R10.84 Generalized abdominal pain (principal); R11.0 Nausea; Z53.21 Procedure and treatment not carried out due to patient leaving prior to being seen by health care provider

== ENCOUNTER 2018-10-28 12:18 | Inpatient (IN) | payer MEDICAID, OTHER ==
[~2018-10-28] VITALS: Ht 170.2 cm; Wt 58.5 kg
[2018-10-28] MEDS ORDERED: FluPHENAZine HCL 2.5 MG/ML INJ IM ONE (13:15)
[2018-10-28] MEDS ORDERED: DIAZ5 PO (13:15)
[2018-10-28] MEDS ORDERED: LORazepam 2 MG/ML VIAL IM ONE (13:15)
[2018-10-28] MEDS ORDERED: COD30 PO (13:15)
[2018-10-28] MEDS ORDERED: DiphenhydrAMINE HCL 50 MG/ML VIAL IM ONE (13:15)
[2018-10-28 13:33] LABS: AMPHET/METH SCREEN,URINE POSITIVE (NEGATIVE); BARBITURATE SCREEN, URINE NEGATIVE (NEGATIVE); BENZODIAZEPINES SCREEN,URINE POSITIVE (NEGATIVE); CANNABINOID SCREEN,URINE NEGATIVE (NEGATIVE); COCAINE SCREEN,URINE NEGATIVE (NEGATIVE); METHADONE SCREEN, URINE NEGATIVE (NEGATIVE); OPIATE SCREEN,URINE POSITIVE (NEGATIVE)
[2018-10-28 13:36] LABS: PHENCYCLIDINE SCREEN,URINE NEGATIVE (NEGATIVE)
[2018-10-28 13:37] LABS: BASOPHILS % (AUTO) 1.5 % (0.0-2.0); EOSINOPHILS % (AUTO) 0.2 % (1.0-6.0); HEMATOCRIT 34.4 % (36-46); HEMOGLOBIN 10.9 g/dL (12.0-16.0); LYMPHOCYTES # (AUTO) 1.8 K/uL (1.0-4.8); LYMPHOCYTES % (AUTO) 28.5 % (22.0-44.0); MEAN CORPUSCULAR HGB CONC 31.6 G/dL (31.0-37.0); MEAN CORPUSCULAR VOLUME 79 fL (80-100); MONOCYTES # (AUTO) 0.6 K/uL (0.1-1.0); MONOCYTES % (AUTO) 8.9 % (2.0-9.0); NEUTROPHILS # (AUTO) 3.8 K/uL (1.8-7.7); NEUTROPHILS % (AUTO) 60.9 % (40.0-70.0); PLATELET COUNT (AUTO) 392 K/uL (150-450); RED BLOOD CELL COUNT(AUTO) 4.35 MIL/uL (4.00-5.20); RED CELL DISTRIBUTION WIDTH 20.1 % (11.5-14.5)
[2018-10-28 13:57] LABS: ANION GAP 12 mmol/L (8-16); CARBON DIOXIDE 28 mmol/L (22-29); CHLORIDE 107 mmol/L (98-107); CREATININE 0.71 mg/dL (0.60-1.30); GLOMERULAR FILTR. RATE CALC > 60 mL/min (>60); GLUCOSE,RANDOM 76 mg/dL (70-110); POTASSIUM 3.9 mmol/L (3.5-5.1); SODIUM SERUM 147 mmol/L (136-145); UREA NITROGEN, BLOOD 4 mg/dL (7-18)
[2018-10-28 14:02] LABS: ALANINE AMINOTRANSFERASE 21 U/L (12-78); ALBUMIN 3.6 g/dL (3.4-5.0); ALKALINE PHOSPHATASE 140 U/L (46-116); ASPARTATE AMINOTRANSFERASE 30 U/L (15-37); BILIRUBIN,TOTAL 0.2 mg/dL (0.1-1.0); TOTAL PROTEIN, SERUM 7.1 g/dL (6.4-8.2)
[2018-10-28 14:30] LABS: HCG,QUANTITATIVE < 1 mIU/mL (0-6); PHENYTOIN (DILANTIN) 4.7 mcg/mL (10.0-20.0)
[2018-10-28] MEDS ORDERED: MAGNESIUM HYDROXIDE SUSPENSION 30 ML UDCUP PO PRN ×2 (15:00→16:45)
[2018-10-28] MEDS ORDERED: LOPERAMIDE HCL 2 MG CAPSULE PO PRN ×2 (15:00→16:45)
[2018-10-28] MEDS ORDERED: ZOLPIDEM TARTRATE 10 MG TABLET PO PRN (15:00)
[2018-10-28] MEDS ORDERED: LORazepam 2 MG TABLET PO PRN (15:00)
[2018-10-28] MEDS ORDERED: PROMETHAZINE HCL 25 MG TABLET PO PRN ×2 (15:00→16:45)
[2018-10-28] MEDS ORDERED: ACETAMINOPHEN 325 MG TABLET PO PRN ×2 (15:00→16:45)
[2018-10-28] MEDS ORDERED: TUBERCULIN, PURIFIED PROTEIN DERIVATIVE 5 TU/0.1 ML SYRINGE ID ONE ×2 (15:00)
[2018-10-28] MEDS ORDERED: OLANZapine 5 MG RAPDIS TABLET PO PRN ×2 (15:00→16:45)
[2018-10-28] MEDS ORDERED: HydrOXYzine PAMOATE 50 MG CAPSULE PO PRN ×2 (15:00→16:45)
[2018-10-28] MEDS ORDERED: GuaiFENesin/D-METHORPHAN [SUGAR-FREE] 200-20MG/10 ML SYRUP UDCUP PO PRN ×2 (15:00→16:45)
[2018-10-28] MEDS ORDERED: MAG HYDROX/AL HYDROX/SIMETH ES 30 ML SUSPENSION UDCUP PO PRN ×2 (15:00→16:45)
[2018-10-28] MEDS ORDERED: ACET1TAB12 PO (15:33)
[2018-10-28] MEDS ORDERED: PHENYTOIN SODIUM 100 MG ER CAPSULE PO ONE (16:00)
[2018-10-28 18:06] VITALS: BP 110/62
[2018-10-28] MEDS ORDERED: THIAMINE HCL 100 MG TABLET PO SCH (21:00)
[2018-10-28] MEDS ORDERED: OLANZapine 5 MG RAPDIS TABLET PO SCH ×2 (21:00)
[2018-10-28] MEDS ORDERED: PHENYTOIN SODIUM 100 MG ER CAPSULE PO SCH ×2 (21:00)
[2018-10-29] MEDS ORDERED: -PHARMACY VACCINE NOTE- MISC ONE (01:45)
[2018-10-29 07:11] VITALS: BP 106/68
[2018-10-29] MEDS: MULTIVITAMINS WITH MINERALS, THERAPEUTIC TABLET PO SCH (08:09)
[2018-10-29] MEDS: FOLIC ACID 1 MG TABLET PO SCH (08:09)
[2018-10-29] MEDS: LORazepam 2 MG TABLET PO PRN ×4 (08:09→21:11)
[2018-10-29] MEDS: THIAMINE HCL 100 MG TABLET PO SCH ×2 (08:09→16:26)
[2018-10-29 08:14] VITALS: BP 108/67
[2018-10-29] MEDS ORDERED: MULTIVITAMINS WITH MINERALS, THERAPEUTIC TABLET PO SCH (09:00)
[2018-10-29] MEDS ORDERED: FOLIC ACID 1 MG TABLET PO SCH (09:00)
[2018-10-29 16:05] VITALS: BP 110/60
[2018-10-29] MEDS ORDERED: PALIPERIDONE 1.5 MG ER TABLET PO PRN (16:45)
[2018-10-29] MEDS ORDERED: PALIPERIDONE PALMITATE 234 MG/1.5 ML SYRINGE IM ONE (16:45)
[2018-10-29] MEDS: PHENYTOIN SODIUM 100 MG ER CAPSULE PO SCH (20:34)
[2018-10-29] MEDS ORDERED: PALIPERIDONE 3 MG ER TABLET PO SCH (21:00)
[2018-10-30 00:40] VITALS: BP 108/64
[2018-10-30] MEDS: ZOLPIDEM TARTRATE 10 MG TABLET PO PRN (00:42)
[2018-10-30] MEDS: LORazepam 2 MG TABLET PO PRN ×3 (08:10→16:38)
[2018-10-30 08:22] VITALS: BP 151/82
[2018-10-30] MEDS: NALTREXONE HCL 50 MG TABLET PO SCH (08:26)
[2018-10-30] MEDS: THIAMINE HCL 100 MG TABLET PO SCH ×2 (08:26→16:45)
[2018-10-30] MEDS: MULTIVITAMINS WITH MINERALS, THERAPEUTIC TABLET PO SCH (08:26)
[2018-10-30] MEDS: FOLIC ACID 1 MG TABLET PO SCH (08:26)
[2018-10-30] MEDS ORDERED: DiphenhydrAMINE HCL 50 MG/ML VIAL ONE (09:48)
[2018-10-30] MEDS ORDERED: BENZTROPINE MESYLATE 2 MG TABLET PO ONE (10:00)
[2018-10-30] MEDS ORDERED: DiphenhydrAMINE HCL 50 MG/ML VIAL IM ONE (10:00)
[2018-10-30] MEDS: BENZTROPINE MESYLATE 2 MG TABLET PO SCH ×2 (13:26→16:45)
[2018-10-30 14:00] VITALS: BP 123/75
[2018-10-30 16:18] VITALS: BP 106/62
[2018-10-30] MEDS ORDERED: PALIPERIDONE 1.5 MG ER TABLET PO PRN (17:00)
[2018-10-30] MEDS ORDERED: OLANZapine 5 MG RAPDIS TABLET PO PRN (17:00)
[2018-10-30] MEDS: HYDROCODONE/ACETAMINOPHEN 5-325 MG TABLET PO PRN (18:10)
[2018-10-30] MEDS: BENZOCAINE/MENTHOL LOZENGE PO PRN (18:53)
[2018-10-30] MEDS: OLANZapine 5 MG RAPDIS TABLET PO SCH (20:15)
[2018-10-30] MEDS: PHENYTOIN SODIUM 100 MG ER CAPSULE PO SCH (20:15)
[2018-10-31] VITALS (9 sets, daily range): BP systolic 104–144; BP diastolic 56–83
[2018-10-31] MEDS: LORazepam 2 MG TABLET PO PRN ×5 (00:11→14:47)
[2018-10-31] MEDS: HYDROCODONE/ACETAMINOPHEN 5-325 MG TABLET PO PRN ×3 (00:12→18:00)
[2018-10-31] MEDS: FOLIC ACID 1 MG TABLET PO SCH (08:34)
[2018-10-31] MEDS: TRIHEXYPHENIDYL HCL 5 MG TABLET PO SCH ×3 (08:35→16:15)
[2018-10-31] MEDS: NALTREXONE HCL 50 MG TABLET PO SCH (08:35)
[2018-10-31] MEDS: THIAMINE HCL 100 MG TABLET PO SCH ×2 (08:35→16:15)
[2018-10-31] MEDS: MULTIVITAMINS WITH MINERALS, THERAPEUTIC TABLET PO SCH (08:35)
[2018-10-31] MEDS ORDERED: CloZAPine 25 MG TABLET PO SCH (09:00)
[2018-10-31] MEDS ORDERED: HYDROCODONE/ACETAMINOPHEN 5-325 MG TABLET PO PRN (12:00)
[2018-10-31] MEDS: BENZOCAINE/MENTHOL LOZENGE PO PRN (17:54)
[2018-10-31] MEDS: PHENYTOIN SODIUM 100 MG ER CAPSULE PO SCH (20:37)
[2018-10-31] MEDS: OLANZapine 5 MG RAPDIS TABLET PO SCH (20:37)
[2018-10-31] MEDS: ZOLPIDEM TARTRATE 10 MG TABLET PO PRN (20:37)
[2018-11-01] VITALS (8 sets, daily range): BP systolic 109–136; BP diastolic 62–99
[2018-11-01] MEDS: LORazepam 2 MG TABLET PO PRN ×4 (00:12→18:19)
[2018-11-01] MEDS: HYDROCODONE/ACETAMINOPHEN 5-325 MG TABLET PO PRN ×5 (00:13→20:50)
[2018-11-01] MEDS: FOLIC ACID 1 MG TABLET PO SCH (09:00)
[2018-11-01] MEDS ORDERED: CloZAPine 25 MG TABLET PO SCH ×2 (09:00→21:00)
[2018-11-01] MEDS: MULTIVITAMINS WITH MINERALS, THERAPEUTIC TABLET PO SCH (09:00)
[2018-11-01] MEDS: TRIHEXYPHENIDYL HCL 5 MG TABLET PO SCH ×3 (09:00→17:04)
[2018-11-01] MEDS: THIAMINE HCL 100 MG TABLET PO SCH ×2 (09:00→17:00)
[2018-11-01] MEDS ORDERED: ALBUTEROL SULFATE HFA 90 MCG/PUFF 8 GM INHALER IH PRN (19:00)
[2018-11-01] MEDS: OLANZapine 5 MG RAPDIS TABLET PO SCH (20:12)
[2018-11-01] MEDS: PHENYTOIN SODIUM 100 MG ER CAPSULE PO SCH (20:12)
[2018-11-02 05:44] VITALS: BP 111/84
[2018-11-02] MEDS: HYDROCODONE/ACETAMINOPHEN 5-325 MG TABLET PO PRN ×3 (05:46→14:52)
[2018-11-02] MEDS: LORazepam 2 MG TABLET PO PRN ×3 (05:46→16:14)
[2018-11-02 08:01] VITALS: BP 106/66
[2018-11-02] MEDS: FOLIC ACID 1 MG TABLET PO SCH (08:59)
[2018-11-02] MEDS ORDERED: CloZAPine 25 MG TABLET PO SCH ×2 (09:00→21:00)
[2018-11-02] MEDS: MULTIVITAMINS WITH MINERALS, THERAPEUTIC TABLET PO SCH (09:00)
[2018-11-02] MEDS ORDERED: PALIPERIDONE PALMITATE 156 MG/ML SYRINGE IM ONE (09:00)
[2018-11-02] MEDS: TRIHEXYPHENIDYL HCL 5 MG TABLET PO SCH ×3 (09:02→16:16)
[2018-11-02] MEDS: THIAMINE HCL 100 MG TABLET PO SCH ×2 (09:04→16:14)
[2018-11-02 09:13] LABS: ALANINE AMINOTRANSFERASE 26 U/L (12-78); ALBUMIN 3.4 g/dL (3.4-5.0); ALKALINE PHOSPHATASE 113 U/L (46-116); ANION GAP 8 mmol/L (8-16); ASPARTATE AMINOTRANSFERASE 32 U/L (15-37); BILIRUBIN,TOTAL 0.1 mg/dL (0.1-1.0); CALCIUM, TOTAL 9.4 mg/dL (8.8-10.5); CARBON DIOXIDE 27 mmol/L (22-29); CHLORIDE 103 mmol/L (98-107); FREE T4 (FREE THYROXINE) 0.71 ng/dL (0.76-1.46); GLOMERULAR FILTR. RATE CALC > 60 mL/min (>60); GLUCOSE,RANDOM 123 mg/dL (70-110); PHENYTOIN (DILANTIN) 6.9 mcg/mL (10.0-20.0); POTASSIUM 4.1 mmol/L (3.5-5.1); SODIUM SERUM 138 mmol/L (136-145); THYROID STIMULATING HORMONE 0.45 uIU/mL (0.36-3.74); TOTAL PROTEIN, SERUM 7.6 g/dL (6.4-8.2); UREA NITROGEN, BLOOD 9 mg/dL (7-18)
[2018-11-02 10:32] VITALS: BP 111/68
[2018-11-02 14:52] VITALS: BP 109/73
[2018-11-02 16:07] VITALS: BP_SYST 109; BP_SYST 129; BP_DIAS 64; BP_DIAS 89
[2018-11-02] MEDS: PHENYTOIN SODIUM 100 MG ER CAPSULE PO SCH (20:20)
[2018-11-02] MEDS: OLANZapine 5 MG RAPDIS TABLET PO SCH (20:21)
[2018-11-03] VITALS (7 sets, daily range): BP systolic 109–134; BP diastolic 69–80
[2018-11-03] MEDS: HYDROCODONE/ACETAMINOPHEN 5-325 MG TABLET PO PRN ×5 (00:50→18:18)
[2018-11-03] MEDS: LORazepam 2 MG TABLET PO PRN ×4 (00:50→18:17)
[2018-11-03] MEDS: FOLIC ACID 1 MG TABLET PO SCH (08:51)
[2018-11-03] MEDS: MULTIVITAMINS WITH MINERALS, THERAPEUTIC TABLET PO SCH (08:51)
[2018-11-03] MEDS: THIAMINE HCL 100 MG TABLET PO SCH ×2 (08:51→16:00)
[2018-11-03] MEDS: TRIHEXYPHENIDYL HCL 5 MG TABLET PO SCH ×3 (08:51→16:00)
[2018-11-03] MEDS ORDERED: CloZAPine 25 MG TABLET PO SCH (09:00)
[2018-11-03] MEDS: PHENYTOIN SODIUM 100 MG ER CAPSULE PO SCH (21:00)
[2018-11-03] MEDS: OLANZapine 5 MG RAPDIS TABLET PO SCH (21:00)
[2018-11-04] VITALS (8 sets, daily range): BP systolic 104–132; BP diastolic 63–97
[2018-11-04] MEDS: HYDROCODONE/ACETAMINOPHEN 5-325 MG TABLET PO PRN ×5 (00:32→18:13)
[2018-11-04] MEDS: LORazepam 2 MG TABLET PO PRN ×4 (00:32→20:56)
[2018-11-04] MEDS: FOLIC ACID 1 MG TABLET PO SCH (08:04)
[2018-11-04] MEDS: TRIHEXYPHENIDYL HCL 5 MG TABLET PO SCH ×3 (08:05→16:39)
[2018-11-04] MEDS: MULTIVITAMINS WITH MINERALS, THERAPEUTIC TABLET PO SCH (08:05)
[2018-11-04] MEDS: THIAMINE HCL 100 MG TABLET PO SCH ×2 (08:05→16:39)
[2018-11-04] MEDS ORDERED: FluvoxaMINE MALEATE 50 MG TABLET PO SCH (09:00)
[2018-11-04] MEDS: PHENYTOIN SODIUM 100 MG ER CAPSULE PO SCH (20:09)
[2018-11-05 02:20] VITALS: BP 117/77
[2018-11-05] MEDS: HYDROCODONE/ACETAMINOPHEN 5-325 MG TABLET PO PRN ×6 (02:22→23:47)
[2018-11-05] MEDS: LORazepam 2 MG TABLET PO PRN ×5 (02:22→23:47)
[2018-11-05 06:07] VITALS: BP 110/78
[2018-11-05] MEDS: FOLIC ACID 1 MG TABLET PO SCH ×2 (08:48→09:10)
[2018-11-05] MEDS: MULTIVITAMINS WITH MINERALS, THERAPEUTIC TABLET PO SCH ×2 (08:48→09:10)
[2018-11-05] MEDS: THIAMINE HCL 100 MG TABLET PO SCH ×3 (08:48→17:00)
[2018-11-05] MEDS: TRIHEXYPHENIDYL HCL 5 MG TABLET PO SCH ×4 (08:48→17:00)
[2018-11-05] MEDS ORDERED: CloZAPine 25 MG TABLET PO SCH (09:00)
[2018-11-05 09:33] VITALS: BP 106/67
[2018-11-05 16:02] VITALS: BP 106/71
[2018-11-05] MEDS: ACAMPROSATE CALCIUM 333 MG DR TABLET PO SCH ×2 (17:00→18:34)
[2018-11-05] MEDS: PHENYTOIN SODIUM 100 MG ER CAPSULE PO SCH (21:00)
[2018-11-05] MEDS ORDERED: CloZAPine 100 MG TABLET PO SCH (21:00)
[2018-11-06 00:03] VITALS: BP 119/73
[2018-11-06 04:00] VITALS: BP 122/78
[2018-11-06] MEDS: HYDROCODONE/ACETAMINOPHEN 5-325 MG TABLET PO PRN ×5 (04:10→20:44)
[2018-11-06] MEDS: LORazepam 2 MG TABLET PO PRN ×3 (06:24→14:43)
[2018-11-06] MEDS: TRIHEXYPHENIDYL HCL 5 MG TABLET PO SCH ×3 (08:09→17:00)
[2018-11-06] MEDS: FOLIC ACID 1 MG TABLET PO SCH (08:09)
[2018-11-06] MEDS: MULTIVITAMINS WITH MINERALS, THERAPEUTIC TABLET PO SCH (08:09)
[2018-11-06] MEDS: ACAMPROSATE CALCIUM 333 MG DR TABLET PO SCH ×3 (08:09→17:42)
[2018-11-06] MEDS: THIAMINE HCL 100 MG TABLET PO SCH ×2 (08:10→17:43)
[2018-11-06 08:21] VITALS: BP 120/75
[2018-11-06] MEDS ORDERED: CloZAPine 25 MG TABLET PO SCH (09:00)
[2018-11-06 12:18] VITALS: BP 112/68
[2018-11-06 16:03] VITALS: BP 104/83
[2018-11-06] MEDS: PHENYTOIN SODIUM 100 MG ER CAPSULE PO SCH (20:37)
[2018-11-06 20:44] VITALS: BP 108/85
[2018-11-06] MEDS ORDERED: CloZAPine 100 MG TABLET PO SCH (21:00)
[2018-11-07] VITALS (9 sets, daily range): BP systolic 105–127; BP diastolic 61–83
[2018-11-07] MEDS: HYDROCODONE/ACETAMINOPHEN 5-325 MG TABLET PO PRN ×6 (02:26→23:41)
[2018-11-07] MEDS: LORazepam 2 MG TABLET PO PRN ×4 (03:17→19:35)
[2018-11-07] MEDS: FOLIC ACID 1 MG TABLET PO SCH (08:02)
[2018-11-07] MEDS: TRIHEXYPHENIDYL HCL 5 MG TABLET PO SCH ×3 (08:02→16:02)
[2018-11-07] MEDS: ACAMPROSATE CALCIUM 333 MG DR TABLET PO SCH ×3 (08:02→16:02)
[2018-11-07] MEDS: THIAMINE HCL 100 MG TABLET PO SCH (08:03)
[2018-11-07] MEDS: MULTIVITAMINS WITH MINERALS, THERAPEUTIC TABLET PO SCH (08:03)
[2018-11-07] MEDS ORDERED: CloZAPine 25 MG TABLET PO SCH (09:00)
[2018-11-07] MEDS: PHENYTOIN SODIUM 100 MG ER CAPSULE PO SCH (20:47)
[2018-11-07] MEDS ORDERED: CloZAPine 100 MG TABLET PO SCH (21:00)
[2018-11-08 00:47] VITALS: BP 127/75
[2018-11-08] MEDS: LORazepam 2 MG TABLET PO PRN ×3 (03:25→12:17)
[2018-11-08 05:50] VITALS: BP 125/81
[2018-11-08] MEDS: HYDROCODONE/ACETAMINOPHEN 5-325 MG TABLET PO PRN ×4 (05:55→18:33)
[2018-11-08] MEDS: TRIHEXYPHENIDYL HCL 5 MG TABLET PO SCH ×3 (08:09→17:00)
[2018-11-08] MEDS: ACAMPROSATE CALCIUM 333 MG DR TABLET PO SCH ×4 (08:09→17:00)
[2018-11-08] MEDS: MULTIVITAMINS WITH MINERALS, THERAPEUTIC TABLET PO SCH (08:09)
[2018-11-08 08:15] VITALS: BP 101/63
[2018-11-08] MEDS ORDERED: CloZAPine 100 MG TABLET PO SCH (09:00)
[2018-11-08 09:58] VITALS: BP 136/80
[2018-11-08 14:06] VITALS: BP 112/76
[2018-11-08 16:03] VITALS: BP 118/76
[2018-11-08] MEDS: PHENYTOIN SODIUM 100 MG ER CAPSULE PO SCH (20:20)
[2018-11-09 00:09] VITALS: BP 123/76
[2018-11-09] MEDS: LORazepam 2 MG TABLET PO PRN ×4 (00:11→12:35)
[2018-11-09] MEDS: HYDROCODONE/ACETAMINOPHEN 5-325 MG TABLET PO PRN ×6 (00:11→22:30)
[2018-11-09 04:12] VITALS: BP 107/56
[2018-11-09 08:26] VITALS: BP 114/64
[2018-11-09] MEDS: MULTIVITAMINS WITH MINERALS, THERAPEUTIC TABLET PO SCH (08:30)
[2018-11-09] MEDS: TRIHEXYPHENIDYL HCL 5 MG TABLET PO SCH ×3 (08:30→17:00)
[2018-11-09] MEDS: ACAMPROSATE CALCIUM 333 MG DR TABLET PO SCH ×3 (08:30→17:00)
[2018-11-09 16:10] VITALS: BP 106/66
[2018-11-09 17:13] VITALS: BP 126/84
[2018-11-09] MEDS: PHENYTOIN SODIUM 100 MG ER CAPSULE PO SCH (20:53)
[2018-11-09 22:30] VITALS: BP 116/76
[2018-11-10] VITALS (7 sets, daily range): BP systolic 108–136; BP diastolic 75–90
[2018-11-10] MEDS: LORazepam 2 MG TABLET PO PRN ×4 (00:10→19:13)
[2018-11-10] MEDS: HYDROCODONE/ACETAMINOPHEN 5-325 MG TABLET PO PRN ×5 (02:41→19:14)
[2018-11-10] MEDS: ACAMPROSATE CALCIUM 333 MG DR TABLET PO SCH ×3 (08:33→17:00)
[2018-11-10] MEDS: TRIHEXYPHENIDYL HCL 5 MG TABLET PO SCH ×3 (08:33→17:00)
[2018-11-10] MEDS: MULTIVITAMINS WITH MINERALS, THERAPEUTIC TABLET PO SCH (08:34)
[2018-11-10] MEDS ORDERED: CloZAPine 25 MG TABLET PO SCH (09:00)
[2018-11-10] MEDS: PHENYTOIN SODIUM 100 MG ER CAPSULE PO SCH (20:40)
[2018-11-10] MEDS ORDERED: CloZAPine 100 MG TABLET PO SCH (21:00)
[2018-11-11] VITALS (7 sets, daily range): BP systolic 110–129; BP diastolic 70–86
[2018-11-11] MEDS: HYDROCODONE/ACETAMINOPHEN 5-325 MG TABLET PO PRN ×6 (00:14→21:31)
[2018-11-11] MEDS: LORazepam 2 MG TABLET PO PRN ×4 (01:45→15:13)
[2018-11-11] MEDS: BENZOCAINE/MENTHOL LOZENGE PO PRN (04:17)
[2018-11-11] MEDS: ACAMPROSATE CALCIUM 333 MG DR TABLET PO SCH ×3 (07:36→16:58)
[2018-11-11] MEDS: MULTIVITAMINS WITH MINERALS, THERAPEUTIC TABLET PO SCH (07:36)
[2018-11-11] MEDS: TRIHEXYPHENIDYL HCL 5 MG TABLET PO SCH ×3 (07:41→16:58)
[2018-11-11] MEDS ORDERED: CloZAPine 25 MG TABLET PO SCH (09:00)
[2018-11-11] MEDS: PHENYTOIN SODIUM 100 MG ER CAPSULE PO SCH (20:08)
[2018-11-11] MEDS ORDERED: CloZAPine 100 MG TABLET PO SCH (21:00)
[2018-11-12] MEDS: LORazepam 2 MG TABLET PO PRN ×4 (02:23→18:20)
[2018-11-12 02:24] VITALS: BP 128/84
[2018-11-12] MEDS: HYDROCODONE/ACETAMINOPHEN 5-325 MG TABLET PO PRN ×6 (02:24→23:02)
[2018-11-12 08:20] VITALS: BP 117/80
[2018-11-12] MEDS: ACAMPROSATE CALCIUM 333 MG DR TABLET PO SCH ×3 (08:22→17:00)
[2018-11-12] MEDS: TRIHEXYPHENIDYL HCL 5 MG TABLET PO SCH ×3 (08:22→17:00)
[2018-11-12] MEDS: MULTIVITAMINS WITH MINERALS, THERAPEUTIC TABLET PO SCH (08:22)
[2018-11-12] MEDS ORDERED: CloZAPine 100 MG TABLET PO SCH ×2 (09:00→21:00)
[2018-11-12 10:42] VITALS: BP 110/86
[2018-11-12 14:45] VITALS: BP 112/70
[2018-11-12 16:38] VITALS: BP 127/77
[2018-11-12 18:49] VITALS: BP 112/78
[2018-11-12] MEDS: PHENYTOIN SODIUM 100 MG ER CAPSULE PO SCH (20:45)
[2018-11-13] MEDS: LORazepam 2 MG TABLET PO PRN ×4 (02:35→20:02)
[2018-11-13 03:00] VITALS: BP 138/84
[2018-11-13] MEDS: HYDROCODONE/ACETAMINOPHEN 5-325 MG TABLET PO PRN ×5 (03:02→20:02)
[2018-11-13 08:17] VITALS: BP 150/81
[2018-11-13] MEDS: TRIHEXYPHENIDYL HCL 5 MG TABLET PO SCH ×3 (08:19→17:00)
[2018-11-13] MEDS: ACAMPROSATE CALCIUM 333 MG DR TABLET PO SCH ×3 (08:20→17:00)
[2018-11-13] MEDS: MULTIVITAMINS WITH MINERALS, THERAPEUTIC TABLET PO SCH (08:21)
[2018-11-13 10:59] VITALS: BP 110/72
[2018-11-13 14:59] VITALS: BP 112/76
[2018-11-13 16:03] VITALS: BP 107/61
[2018-11-13] MEDS: PHENYTOIN SODIUM 100 MG ER CAPSULE PO SCH (20:41)
[2018-11-14 00:01] VITALS: BP 116/64
[2018-11-14] MEDS: HYDROCODONE/ACETAMINOPHEN 5-325 MG TABLET PO PRN ×6 (00:05→21:41)
[2018-11-14] MEDS: LORazepam 2 MG TABLET PO PRN ×4 (04:13→23:02)
[2018-11-14 05:14] VITALS: BP 120/78
[2018-11-14] MEDS: ACAMPROSATE CALCIUM 333 MG DR TABLET PO SCH ×3 (08:06→17:00)
[2018-11-14] MEDS: TRIHEXYPHENIDYL HCL 5 MG TABLET PO SCH ×3 (08:06→17:00)
[2018-11-14] MEDS: MULTIVITAMINS WITH MINERALS, THERAPEUTIC TABLET PO SCH (08:07)
[2018-11-14 08:21] VITALS: BP 113/74
[2018-11-14 12:26] VITALS: BP 114/78
[2018-11-14 17:23] VITALS: BP 109/72
[2018-11-14] MEDS: PHENYTOIN SODIUM 100 MG ER CAPSULE PO SCH (21:41)
[2018-11-15] VITALS (11 sets, daily range): BP systolic 105–138; BP diastolic 66–85
[2018-11-15] MEDS: HYDROCODONE/ACETAMINOPHEN 5-325 MG TABLET PO PRN ×6 (02:02→21:44)
[2018-11-15] MEDS: LORazepam 2 MG TABLET PO PRN ×4 (04:52→16:59)
[2018-11-15] MEDS: TRIHEXYPHENIDYL HCL 5 MG TABLET PO SCH ×3 (09:00→16:35)
[2018-11-15] MEDS: MULTIVITAMINS WITH MINERALS, THERAPEUTIC TABLET PO SCH (09:00)
[2018-11-15] MEDS: ACAMPROSATE CALCIUM 333 MG DR TABLET PO SCH ×3 (09:00→16:35)
[2018-11-15] MEDS: PHENYTOIN SODIUM 100 MG ER CAPSULE PO SCH (20:56)
[2018-11-16 02:00] VITALS: BP 114/76
[2018-11-16] MEDS: HYDROCODONE/ACETAMINOPHEN 5-325 MG TABLET PO PRN ×5 (02:05→18:36)
[2018-11-16] MEDS: LORazepam 2 MG TABLET PO PRN ×3 (04:55→18:21)
[2018-11-16 08:22] VITALS: BP 117/57
[2018-11-16] MEDS: MULTIVITAMINS WITH MINERALS, THERAPEUTIC TABLET PO SCH (08:35)
[2018-11-16] MEDS: TRIHEXYPHENIDYL HCL 5 MG TABLET PO SCH ×3 (08:35→17:00)
[2018-11-16] MEDS: ACAMPROSATE CALCIUM 333 MG DR TABLET PO SCH ×3 (08:35→17:00)
[2018-11-16 10:18] VITALS: BP 114/74
[2018-11-16 12:49] VITALS: BP 118/76
[2018-11-16 17:38] VITALS: BP 119/79
[2018-11-16 18:36] VITALS: BP 126/84
[2018-11-16] MEDS: PHENYTOIN SODIUM 100 MG ER CAPSULE PO SCH (20:51)
[2018-11-17 00:15] VITALS: BP 102/65
[2018-11-17] MEDS: LORazepam 2 MG TABLET PO PRN ×3 (00:22→14:28)
[2018-11-17] MEDS: HYDROCODONE/ACETAMINOPHEN 5-325 MG TABLET PO PRN ×6 (01:04→21:11)
[2018-11-17] MEDS: ACAMPROSATE CALCIUM 333 MG DR TABLET PO SCH ×3 (08:15→16:21)
[2018-11-17] MEDS: MULTIVITAMINS WITH MINERALS, THERAPEUTIC TABLET PO SCH (08:15)
[2018-11-17] MEDS: TRIHEXYPHENIDYL HCL 5 MG TABLET PO SCH ×3 (08:15→16:21)
[2018-11-17 08:28] VITALS: BP 110/66
[2018-11-17 16:19] VITALS: BP 143/100
[2018-11-17 17:07] VITALS: BP 113/74
[2018-11-17 17:30] VITALS: BP 152/100
[2018-11-17] MEDS: PHENYTOIN SODIUM 100 MG ER CAPSULE PO SCH (20:29)
[2018-11-17] MEDS: ZOLPIDEM TARTRATE 10 MG TABLET PO PRN (21:16)
[2018-11-18 01:10] VITALS: BP 118/79
[2018-11-18] MEDS: HYDROCODONE/ACETAMINOPHEN 5-325 MG TABLET PO PRN ×7 (01:13→23:39)
[2018-11-18] MEDS: LORazepam 2 MG TABLET PO PRN ×4 (02:35→22:32)
[2018-11-18 08:19] VITALS: BP 120/78
[2018-11-18 08:59] VITALS: BP 122/78
[2018-11-18] MEDS: ACAMPROSATE CALCIUM 333 MG DR TABLET PO SCH ×3 (09:00→17:00)
[2018-11-18] MEDS: TRIHEXYPHENIDYL HCL 5 MG TABLET PO SCH ×3 (09:00→17:00)
[2018-11-18] MEDS: MULTIVITAMINS WITH MINERALS, THERAPEUTIC TABLET PO SCH (09:00)
[2018-11-18 13:06] VITALS: BP 110/81
[2018-11-18 16:13] VITALS: BP 121/81
[2018-11-18] MEDS ORDERED: ACAM333T7 PO (17:21)
[2018-11-18] MEDS ORDERED: PALI117D IM (17:21)
[2018-11-18] MEDS ORDERED: TRIH5TAB2 PO (17:21)
[2018-11-18] MEDS: PHENYTOIN SODIUM 100 MG ER CAPSULE PO SCH (21:29)
[2018-11-19] VITALS: BP 122/78
[2018-11-19] MEDS: LORazepam 2 MG TABLET PO PRN ×4 (02:38→19:20)
[2018-11-19 04:00] VITALS: BP 117/84
[2018-11-19] MEDS: HYDROCODONE/ACETAMINOPHEN 5-325 MG TABLET PO PRN ×6 (04:02→23:19)
[2018-11-19 08:19] VITALS: BP 114/71
[2018-11-19] MEDS: TRIHEXYPHENIDYL HCL 5 MG TABLET PO SCH ×3 (08:34→17:00)
[2018-11-19] MEDS: MULTIVITAMINS WITH MINERALS, THERAPEUTIC TABLET PO SCH (08:35)
[2018-11-19] MEDS: ACAMPROSATE CALCIUM 333 MG DR TABLET PO SCH ×3 (08:45→17:00)
[2018-11-19 16:34] VITALS: BP 116/70
[2018-11-19] MEDS: PHENYTOIN SODIUM 100 MG ER CAPSULE PO SCH (21:38)
[2018-11-20 00:09] VITALS: BP 115/75
[2018-11-20] MEDS: HYDROCODONE/ACETAMINOPHEN 5-325 MG TABLET PO PRN ×6 (00:13→23:24)
[2018-11-20] MEDS: LORazepam 2 MG TABLET PO PRN ×4 (01:44→16:11)
[2018-11-20 04:00] VITALS: BP 102/74
[2018-11-20] MEDS: TRIHEXYPHENIDYL HCL 5 MG TABLET PO SCH ×3 (08:13→17:00)
[2018-11-20] MEDS: ACAMPROSATE CALCIUM 333 MG DR TABLET PO SCH ×3 (08:14→17:00)
[2018-11-20] MEDS: MULTIVITAMINS WITH MINERALS, THERAPEUTIC TABLET PO SCH (08:14)
[2018-11-20 08:41] VITALS: BP 109/73
[2018-11-20 18:27] VITALS: BP 115/69
[2018-11-20] MEDS: PHENYTOIN SODIUM 100 MG ER CAPSULE PO SCH (20:06)
[2018-11-20 23:24] VITALS: BP 133/60
[2018-11-21] MEDS: LORazepam 2 MG TABLET PO PRN ×3 (02:29→14:35)
[2018-11-21 03:25] VITALS: BP 121/78
[2018-11-21] MEDS: HYDROCODONE/ACETAMINOPHEN 5-325 MG TABLET PO PRN ×5 (03:26→21:11)
[2018-11-21] MEDS: TRIHEXYPHENIDYL HCL 5 MG TABLET PO SCH ×3 (07:58→16:25)
[2018-11-21] MEDS: ACAMPROSATE CALCIUM 333 MG DR TABLET PO SCH ×3 (07:58→16:25)
[2018-11-21] MEDS: MULTIVITAMINS WITH MINERALS, THERAPEUTIC TABLET PO SCH (07:59)
[2018-11-21 08:00] VITALS: BP 104/66
[2018-11-21 12:32] VITALS: BP 108/72
[2018-11-21 16:28] VITALS: BP 129/79
[2018-11-21] MEDS ORDERED: PHENY100 PO (16:57)
[2018-11-21] MEDS ORDERED: PHENYTOIN SODIUM 100 MG ER CAPSULE PO SCH (21:00)
[2018-11-21 21:10] VITALS: BP 110/81
[2018-11-22 00:11] VITALS: BP 152/75
[2018-11-22] MEDS: LORazepam 2 MG TABLET PO PRN ×3 (00:12→10:02)
[2018-11-22 01:18] VITALS: BP 111/73
[2018-11-22] MEDS: HYDROCODONE/ACETAMINOPHEN 5-325 MG TABLET PO PRN ×4 (01:19→13:24)
[2018-11-22] MEDS ORDERED: TRIH5TAB2 PO (03:44)
[2018-11-22] MEDS ORDERED: PHEN100C23 PO (03:44)
[2018-11-22] MEDS ORDERED: ACAM333T7 PO (03:44)
[2018-11-22] MEDS ORDERED: PALI117D IM (03:45)
[2018-11-22] MEDS: MULTIVITAMINS WITH MINERALS, THERAPEUTIC TABLET PO SCH (08:13)
[2018-11-22] MEDS: TRIHEXYPHENIDYL HCL 5 MG TABLET PO SCH ×3 (08:13→16:07)
[2018-11-22] MEDS: ACAMPROSATE CALCIUM 333 MG DR TABLET PO SCH ×3 (08:13→16:07)
[2018-11-22 08:35] VITALS: BP 110/75
[2018-11-22 09:24] VITALS: BP 112/80
[2018-11-22 13:24] VITALS: BP 110/78
[2018-11-22 17:29] VITALS: BP 123/80
[2018-11-23] MEDS ORDERED: TAMO10 PO (07:06)
[2018-11-23] MEDS ORDERED: DIAZ2 PO (07:07)
== END 2018-11-22 19:00 | disposition home or self-care (01) | DRG 750 ==
LOC: EMS 12:25 → B3A 15:59 → EMS 16:36 → B3A 18:13
PROVIDERS: ADMIT Psychiatry & Neurology Psychiatry; ATTEND Psychiatry & Neurology Psychiatry
DX: F25.0 Schizoaffective disorder, bipolar type (principal); R56.9 Unspecified convulsions; C50.919 Malignant neoplasm of unspecified site of unspecified female breast; E86.0 Dehydration; E03.9 Hypothyroidism, unspecified; D64.9 Anemia, unspecified; F17.210 Nicotine dependence, cigarettes, uncomplicated; F12.90 Cannabis use, unspecified, uncomplicated; G47.00 Insomnia, unspecified; G89.29 Other chronic pain; K21.9 Gastro-esophageal reflux disease without esophagitis; Z82.49 Family history of ischemic heart disease and other diseases of the circulatory system; Z85.3 Personal history of malignant neoplasm of breast; Z90.12 Acquired absence of left breast and nipple; Z91.14 Patient's other noncompliance with medication regimen; Z81.8 Family history of other mental and behavioral disorders; Z59.0 Homelessness
CPT/HCPCS: 84439; 84443; 93005; 96372; 99291; G0480; J1200; J2060; J3490; J3535

== ENCOUNTER 2018-11-23 06:49 | Emergency (ER) | payer MEDICAID, OTHER ==
[~2018-11-23] VITALS: Ht 177.8 cm; Wt 57.3 kg
[~2018-11-23 06:49] MED LIST changes: +ACAM333T7 PO; -BENZ0.5T44 PO; -LEVO50TA11 PO; -LITH300C3 PO; -LITH600 PO; +PALI117D IM; +PHENY100 PO; -RISP3 PO; +TRIH5TAB2 PO
[2018-11-23 07:01] VITALS: BP 154/72
[2018-11-23] MEDS ORDERED: TAMO10 PO (07:06)
[2018-11-23] MEDS ORDERED: DIAZ2 PO (07:07)
[2018-11-23] MEDS: HydrOXYzine PAMOATE 50 MG CAPSULE PO ONE ×2 (07:30→07:55)
[2018-11-23 08:26] LABS: AMPHET/METH SCREEN,URINE NEGATIVE (NEGATIVE); BARBITURATE SCREEN, URINE NEGATIVE (NEGATIVE); BENZODIAZEPINES SCREEN,URINE NEGATIVE (NEGATIVE); CANNABINOID SCREEN,URINE NEGATIVE (NEGATIVE); COCAINE SCREEN,URINE NEGATIVE (NEGATIVE); METHADONE SCREEN, URINE NEGATIVE (NEGATIVE); OPIATE SCREEN,URINE POSITIVE (NEGATIVE)
[2018-11-23 08:27] LABS: PHENCYCLIDINE SCREEN,URINE NEGATIVE (NEGATIVE)
== END 2018-11-23 08:53 | disposition left against medical advice (07) ==
LOC: EMS 06:51
DX: F41.9 Anxiety disorder, unspecified (principal); F31.9 Bipolar disorder, unspecified; F20.9 Schizophrenia, unspecified; E03.9 Hypothyroidism, unspecified; G89.29 Other chronic pain; F12.90 Cannabis use, unspecified, uncomplicated; F19.90 Other psychoactive substance use, unspecified, uncomplicated; Z76.0 Encounter for issue of repeat prescription; Z90.12 Acquired absence of left breast and nipple; Z59.0 Homelessness; Z87.891 Personal history of nicotine dependence; Z88.6 Allergy status to analgesic agent; Z88.8 Allergy status to other drugs, medicaments and biological substances

== ENCOUNTER 2018-11-25 06:44 | Emergency (ER) | payer OTHER ==
[~2018-11-25] VITALS: Ht 172.7 cm; Wt 54.5 kg
[~2018-11-25 06:44] MED LIST changes: +DIAZ2 PO; -PHENY100 PO; +TAMO10 PO
[2018-11-25 08:23] LABS: BASOPHILS % (AUTO) 0.6 % (0.0-2.0); EOSINOPHILS % (AUTO) 0.9 % (1.0-6.0); HEMATOCRIT 32.1 % (36-46); HEMOGLOBIN 10.1 g/dL (12.0-16.0); LYMPHOCYTES # (AUTO) 1.1 K/uL (1.0-4.8); LYMPHOCYTES % (AUTO) 14.7 % (22.0-44.0); MEAN CORPUSCULAR HEMOGLOBIN 25.6 pg (26.0-34.0); MEAN CORPUSCULAR HGB CONC 31.6 G/dL (31.0-37.0); MEAN CORPUSCULAR VOLUME 81 fL (80-100); MONOCYTES # (AUTO) 0.8 K/uL (0.1-1.0); NEUTROPHILS # (AUTO) 5.3 K/uL (1.8-7.7); NEUTROPHILS % (AUTO) 72.8 % (40.0-70.0); PLATELET COUNT (AUTO) 332 K/uL (150-450); RED BLOOD CELL COUNT(AUTO) 3.95 MIL/uL (4.00-5.20); RED CELL DISTRIBUTION WIDTH 18.8 % (11.5-14.5)
[2018-11-25 08:38] LABS: ANION GAP 12 mmol/L (8-16); CALCIUM, TOTAL 9.4 mg/dL (8.8-10.5); CARBON DIOXIDE 25 mmol/L (22-29); CHLORIDE 104 mmol/L (98-107); CREATININE 0.82 mg/dL (0.60-1.30); GLOMERULAR FILTR. RATE CALC > 60 mL/min (>60); GLUCOSE,RANDOM 77 mg/dL (70-110); SODIUM SERUM 141 mmol/L (136-145); UREA NITROGEN, BLOOD 6 mg/dL (7-18)
[2018-11-25 08:43] LABS: ALANINE AMINOTRANSFERASE 57 U/L (12-78); ALBUMIN 3.1 g/dL (3.4-5.0); ALKALINE PHOSPHATASE 225 U/L (46-116); ASPARTATE AMINOTRANSFERASE 95 U/L (15-37); BILIRUBIN,TOTAL 0.2 mg/dL (0.1-1.0); TOTAL PROTEIN, SERUM 7.6 g/dL (6.4-8.2)
[2018-11-25] MEDS ORDERED: LORazepam 1 MG TABLET PO ONE (08:45)
[2018-11-25] MEDS ORDERED: TraMADol HCL 50 MG TABLET PO ONE (08:45)
[2018-11-25 09:45] VITALS: BP 131/82
== END 2018-11-25 09:47 | disposition home or self-care (01) ==
LOC: EMS 06:46
DX: F25.9 Schizoaffective disorder, unspecified (principal); E03.9 Hypothyroidism, unspecified; G89.29 Other chronic pain; M54.5 Low back pain; F12.90 Cannabis use, unspecified, uncomplicated; F15.90 Other stimulant use, unspecified, uncomplicated; F41.9 Anxiety disorder, unspecified; F31.9 Bipolar disorder, unspecified; Z87.891 Personal history of nicotine dependence; Z59.0 Homelessness; Z79.899 Other long term (current) drug therapy; Z88.6 Allergy status to analgesic agent; Z88.5 Allergy status to narcotic agent; Z88.8 Allergy status to other drugs, medicaments and biological substances; Z90.12 Acquired absence of left breast and nipple
CPT/HCPCS: 36415; 80053; 85025; 99284; G0480